=== PATIENT | female | born 1950 | race African-American/Black ===

== ENCOUNTER → 2017-02-01 | Outpatient (CLI) | payer MEDICARE ==
[~2017-02-01] MED LIST: AMLODIPINE BESY10 MG PO; ASPIRIN81 M2 PO; BACLOFEN10 MG PO; BENAZEPRIL HCL40 MG PO; CALCIUM + D 6001 TA1 PO; FUROSEMIDE40 MG PO; GABAPENTIN300 M2 PO; GLIPIZIDE10 MG/BOTT PO; HYDROCODONE/APA1 T15 PO; JANUVIA PO; LIPITOR20 MG PO; METFORMIN HCL750 MG PO; METOPROLOL SUCC25 MG PO; NOVOLIN 70100 UNITS/ SUBQ; TRAMADOL HCL50 M1 PO
[2017-02-01 12:44] LABS: HEMOGLOBIN 12.2 gm/dL (12.0-16.0); MEAN CELL VOLUME 85.8 FL (83-96); MEAN CORPUSCULAR HEMOGLOBIN 26.8 PG (28-34); MEAN CORPUSCULAR HGB CONC 31.2 g/dL (30-36); RED BLOOD COUNT 4.54 X10e (3.90-5.30); RED CELL DISTRIBUTION WIDTH 16.2 % (11.0-15.5); WHITE BLOOD COUNT 15.9 X10e3 (4.0-10.5)
[2017-02-01 12:46] LABS: URINE APPEARANCE CLEAR; URINE BILIRUBIN NEG (NEG); URINE BLOOD NEG (NEG); URINE COLOR YELLOW; URINE GLUCOSE 500 MG/DL (NEG); URINE KETONE NEG (NEG); URINE LEUKOCYTE ESTERASE NEG (NEG); URINE NITRATE NEG (NEG); URINE PROTEIN NEG (NEG); URINE SPECIFIC GRAVITY 1.021 (1.003-1.035)
[2017-02-01 12:52] LABS: URINE SOURCE CLEAN CATCH
[2017-02-01 12:54] LABS: CULTURE INDICATED? NO
[2017-02-01 13:17] LABS: CALCIUM SERUM 9.2 mg/dL (8.4-10.2); CREATININE SERUM 0.6 mg/dL (0.6-1.4); GLOM FILT RATE Estimated 109.3 mL/min (>60); POTASSIUM 4.1 mmol/L (3.5-5.1)
== END | disposition home or self-care (01) ==
LOC: CAMB 11:23
PROVIDERS: Orthopaedic Surgery
DX: Z01.812 Encounter for preprocedural laboratory examination (principal); M17.12 Unilateral primary osteoarthritis, left knee
CPT/HCPCS: 36415; 80048; 81003; 85027; 85610; 86850; 86900; 86901; 87070

== ENCOUNTER 2017-02-08 05:49 | Inpatient (IN) | payer MEDICARE ==
--- NOTE | ~2017-02-08 | DS ---
Unit #: [id number] #: [id number] Patient: KAMI CHRISTIANSON [id number] [address] [place], [place] [address] [id number] I MR#: [id number] NAME: KAMI CHRISTIANSON ROOM: 471 Age: 66 Sex: F Admission Date: 02/08/2017 : 1950 Discharge Date: Attending Physician: Marivel Reeder M.D. Primary Care Physician: Holger Goodwin M.D. DISCHARGE SUMMARY FINAL DIAGNOSIS Osteoarthritis, status post left total knee replacement. SECONDARY DIAGNOSES Chronic leukocytosis, diabetes mellitus, hypertension, dyslipidemia. HISTORY OF PRESENT ILLNESS A 66-year-old, who has been treated by me for her knee arthritis conservatively with medications, injection and continued to have persistent symptoms and she has been having episodes of knee giving out and had failed conservative measures with x-ray showing end-stage osteoarthritis, was offered knee replacement. She has since been admitted following surgery for medical and pain management. PAST MEDICAL HISTORY Significant for hypertension, diabetes, dyslipidemia, chronic leukocytosis. CURRENT MEDICATIONS Norvasc, Lasix, Lipitor, Toprol, Neurontin, baclofen, Januvia, Glucotrol. PAST SURGICAL HISTORY She has had arthroscopy of her knee, hysterectomy, rotator cuff repair, and recent left knee replacement. FAMILY HISTORY Nil significant. PERSONAL AND SOCIAL HISTORY She lives at home. Her children are closely involved in her care. She is a nonsmoker. REVIEW OF SYSTEMS HEAD AND NECK: Unremarkable. CARDIOVASCULAR: Denies any chest pain or shortness of breath. RESPIRATORY: No wheezing or coughing. GENITOURINARY: No urgency or frequency. MUSCULOSKELETAL: Positive for arthritis. BLOOD: No abnormal clotting or bleeding. ENDOCRINE: Positive for diabetes. CENTRAL NERVOUS SYSTEM: Denies any seizures or syncope. PHYSICAL EXAMINATION VITAL SIGNS: Afebrile. Heart rate 88 per minute, blood pressure 143/74. HEAD AND NECK: Normal. CARDIOVASCULAR: Heart; S1 and S2 heard. Unit #: [id number] #: [id number] Patient: KAMI CHRISTIANSON RESPIRATORY: Bilateral breath sounds heard. ABDOMEN: Soft. No organomegaly. Bowel sounds present. EXTREMITIES: Left knee has a well healing operative wound. Has some swelling. No infection. No neurovascular deficit. HOSPITAL COURSE The patient was admitted following surgery, was started on Lovenox for thromboembolic precautions. Also, she was on IV antibiotics for 24 hours. Physical therapy and OT was started with range of motion exercises and full weightbearing ambulation with a walker. Also, a medical consult was obtained from Dr. Hwang, and with continued medical management, the patient showed progressive improvement. Followup CBC showed persistent leukocytosis. She has been currently afebrile. Wound looks well. Urine cultures were negative. Her blood cultures have been recently ordered by Dr. Hwang. She is currently ambulating with a walker full weightbearing. Orthopedically, she is doing well. She is ready for rehab management pending approval by Dr. Hwang. She will continue with current medications. She will be on Lovenox for another 10 to 12 days and her sutures can be removed in 2 weeks. Her activity is full weightbearing ambulation with a walker, and she will be followed in my office in 4 weeks. If any problems, to contact my office. Dictated by... Janessa Gonzales/von TD: 02/12/2017 01:03 JOB #: [id number] DISCHARGE SUMMARY Page 1 of 1 X Marivel Reeder MD X DISCHARGE SUMMARY
--- NOTE | ~2017-02-08 | CR63 ---
[facility] A Service of [facility] & [facility] RADIOLOGY TEXT RESULTS PATIENT: KAMI CHRISTIANSON LOCATION: [facility]- : [birth year] UNIT #: [id number] AGE: [address]: Marivel Reeder MD SEX: F ORDER DR: [id number] [facility] [address] [place], [place] [address] [id number] I MR#: [id number] Acc #: [id number] NAME: KAMI CHRISTIANSON : 1950 SEX: F STUDY DATE/TIME: 02/11/2017 11:42 UNIT: [facility] ROOM: [facility] STUDY DESCRIPTION: CR Chest 2 View Attending Physician: Marivel Reeder M.D. Ordering Physician: Griselda Hwang M.D. Primary Care Physician: Holger Goodwin M.D. MEDICAL IMAGING REPORT This report is preliminary unless electronic signature is present EXAM PA and lateral chest. INDICATION 66-year-old female with shortness of breath today, low grade fever. COMPARISON 01/04/2017 FINDINGS Low-volume inspiration. There is increased atelectasis or consolidation in the left base. Heart size stable. Postop right shoulder arthroplasty. IMPRESSION Increased atelectasis or consolidation in the left base. Dictated by... Carlos Eduardo Renae M.D. THIS IS AN ELECTRONICALLY VERIFIED REPORT Carlos Eduardo Renae M.D. at 02/14/2017 9:02 AM FELIX/cecilio TD: 02/11/2017 12:49 JOB #: [id number] MEDICAL IMAGING REPORT Page 1 of 1 COPY
--- NOTE | ~2017-02-08 | CR169 ---
[facility] A Service of [facility] & [facility] RADIOLOGY TEXT RESULTS PATIENT: KAMI CHRISTIANSON LOCATION: [place] [address] : [birth year] UNIT #: [id number] AGE: [address]: Marivel Reeder MD SEX: F ORDER DR: [id number] [facility] [address] [place], [place] [address] [id number] I MR#: [id number] Acc #: [id number] NAME: KAMI CHRISTIANSON : 1950 SEX: F STUDY DATE/TIME: 02/08/2017 11:35 UNIT: [facility] ROOM: [facility] STUDY DESCRIPTION: CR Knee 2 Views Lt Attending Physician: Marivel Reeder M.D. Ordering Physician: Marivel Reeder M.D. Primary Care Physician: Holger Goodwin M.D. MEDICAL IMAGING REPORT This report is preliminary unless electronic signature is present EXAM Left knee series 01/09/2017 HISTORY Postop total PACU front. FINDINGS AP and cross-table lateral views of the left knee are presented. AP and lateral radiographs of left knee are presented. Status post left total knee replacement. Orthopedic hardware normally aligned and located. A small amount of air in the operative bed. Surgical skin shaun anteriorly. [place] bony structures show no nonsurgical abnormality. Dictated by... Jefferson Bennett M.D. THIS IS AN ELECTRONICALLY VERIFIED REPORT Jefferson Bennett M.D. at 02/09/2017 1:54 PM NIKA/james TD: 02/08/2017 12:55 JOB #: [id number] MEDICAL IMAGING REPORT Page 1 of 1 COPY
--- NOTE | ~2017-02-08 | US84 ---
[id number] [facility] [address] [place], [place] [address] [id number] I MR#: [id number] Acc #: [id number] NAME: KAMI CHRISTIANSON : 1950 SEX: F STUDY DATE/TIME: 02/13/2017 18:59 UNIT: C4 ROOM: 471 STUDY DESCRIPTION: US LE Veins Complete Patric Stdy Attending Physician: Marivel Reeder M.D. Ordering Physician: Apryl Perla M.D. Primary Care Physician: Holger Goodwin M.D. MEDICAL IMAGING REPORT This report is preliminary unless electronic signature is present EXAM Bilateral lower extremity venous ultrasound. DATE OF EXAM 02/13/2017 HISTORY Bilateral lower extremity pain for 2 days. TECHNIQUE Venous ultrasound examination of both lower extremities was performed using grayscale, spectral Doppler and color flow Doppler imaging. FINDINGS The examination is negative. There is no evidence of deep venous thrombus from the groin to the lower calf bilaterally. Visualized greater saphenous veins are also patent. IMPRESSION Negative examination. No evidence of lower extremity DVT. Dictated by... Demetrius Swenson M.D. THIS IS AN ELECTRONICALLY VERIFIED REPORT Demetrius Swenson M.D. at 02/14/2017 2:28 PM MARIA DOLORES/issac TD: 02/13/2017 23:14 JOB #: [id number] MEDICAL IMAGING REPORT Page 1 of 1 COPY
--- NOTE | ~2017-02-08 | OR ---
Unit #: [id number] #: [id number] Patient: KAMI CHRISTIANSON [id number] [address] [place], [place] [address] [id number] I MR#: [id number] NAME: KAMI CHRISTIANSON ROOM: 458 Date of Procedure: 02/08/2017 Admission Date: 02/08/2017 Surgeon: Marivel Reeder M.D. : 1950 Attending Physician: Marivel Reeder M.D. Primary Care Physician: Holger oGodwin M.D. OPERATIVE REPORT PREOPERATIVE DIAGNOSIS Osteoarthritis of left knee. POSTOPERATIVE DIAGNOSIS Osteoarthritis of left knee. PROCEDURE PERFORMED Left total knee replacement. TOURS CAPTAIN Dr. Kong Graham. IMPLANT USED 1. [employer] tibial tray, size 2.5. 2. Sigma tibial insert, curved plus, size 2.5, +8 mm. 3. Sigma femoral cruciate retaining, size 3 left femoral component. 4. Oval dome-shaped patella, 32 mm. HISTORY AND FINDINGS The patient is a 66-year-old, who has been having progressively increasing pain in the left knee. She had been treated conservatively with medication and injections, but continues to have persistent symptoms. X-rays shows end-stage osteoarthritis with subchondral cyst formation and rudg-rq-lkee. She was offered joint replacement. Procedure has been explained including risks of anesthesia and complications of surgery like infection, neurovascular injury, stiffness, postoperative complications like DVT, pneumonia had been explained. She voices understanding and wishes to proceed. DESCRIPTION OF PROCEDURE After induction of general anesthesia, the patient's left knee and leg was prepped and draped in the usual sterile manner. Time-out was called. Operative site was confirmed. Esmarch was applied and tourniquet was inflated to 300 mmHg, and then through a midline incision approximately 6 inches long was made centering over the patella. Incision deepened down and a medial arthrotomy was done and the patella was flipped laterally. The infrapatellar fat pad and the menisci was then excised. Then, the osteophytes were also excised. Then, with the knee in flexion, intramedullary drill hole was made and the intramedullary alignment fausto with the cutting block set for a 5-degree valgus and 10-mm offset was pinned in position. The distal femoral cut was made, following which with the knee in flexion, the femoral component sizer was then checked. It was Unit #: [id number] #: [id number] Patient: KAMI CHRISTIANSON decided to use a size 3 cutting block, so drill holes for cutting block was pinned in for a 3 degree external rotation, and then a size 3 cutting block was pinned in position. An anterior, posterior, and chamfer cuts were made, following which attention was turned towards the tibia and the tibia was subluxed forward and the extramedullary alignment guide for the tibia was set. The cutting block was referenced off the medial side for a -4 mm cut with a cutting block pinned in position. The drop fausto was used to check the cut, was found to be satisfactory and then proximal tibial cut was made protecting the posterior neurovascular structures, and the proximal tibia was sized for a 2.5 mm base plate. After it was sized, then the spacer block was used to check the stability in flexion and extension, was found to be stable. The trial components were placed and the 8 mm insert was introduced and the knee was taken through range of motion, was found to be stable in flexion and extension with 8 mm insert. Then, attention was turned towards the patella and the patellar button was osteotomized and drilled for a 32 mm patellar button and knee was taken through range of motion showed good tracking of the patella. Then, attention was turned to the distal femur and drill holes for the femoral pegs were then drilled, following which the trial components were removed. The tibia marked for rotational alignment and tibial base plate was then pinned and the keel was punched, following which the cut surface was irrigated and kept the bone dry while the cement was mixed. 1 g of vancomycin was added to two packs of cement. 2.5 tibial tray was initially cemented. Excess cement was cut and curetted and then the femoral component was then cemented. Left size 3 femoral cruciate retaining femoral component was cemented and excess cement was cut and curetted while the cement was curing. An 8 mm poly insert was introduced into the tibial tray and while the knee was kept in extension, the patella button was cemented. This is a 32 mm patellar button. While the cement was curing, a 3-minute Betadine soak was done, following which knee joint was thoroughly irrigated. Once cement was cured, the knee was taken through range of motion, was found to be stable in flexion and extension with good tracking of the patella. At this point, the poly insert was removed and a curved +8 mm poly insert was introduced into the tibial tray and tourniquet was let down. Hemostasis was obtained. A #1 Vicryl was used to approximate the medial arthrotomy, 0 Vicryl for deep subcu, 2-0 Vicryl for subcutaneous tissue, and skin shaun. Sterile compression dressing was applied. Blood loss was 150 mL. The patient received preoperative antibiotics. Tolerated the procedure well and was transferred to the recovery room in satisfactory condition. Dictated by... Janessa Gonzales/von TD: 02/09/2017 02:18 JOB #: [id number] Unit #: [id number] #: [id number] Patient: KAMI CHRISTIANSON OPERATIVE REPORT Page 1 of 1 X Marivel Reeder MD X PROCEDURE OPERATIVE NOTE
--- NOTE | ~2017-02-08 | CO ---
Unit #: [id number] #: [id number] Patient: KAMI DOMINGUEZ [id number] [address] [address] [id number] I MR#: [id number] NAME: KAMI DOMINGUEZ ROOM: 458 Age: 66 Sex: F Admission Date: 02/08/2017 : 1950 Attending Physician: Marivel Reeder M.D. Primary Care Physician: Holger Goodwin M.D. Requesting Physician: Marivel Reeder M.D. CONSULTATION REPORT REASON FOR CONSULTATION Medical management. HISTORY OF PRESENT ILLNESS Ms. Kami Dominguez is a 66-year-old, -German female patient of Dr. Reeder who does have osteoarthritis and she is status post left total knee replacement from this morning. Our consult was obtained secondary to general medical management of this very pleasant female. She currently denies any active issues, states that her postop pain is well under control. Denies any chest pain, shortness of breath, dyspnea, fever, chills, nausea, vomiting, diarrhea, or abdominal pain. REVIEW OF SYSTEMS Twelve-point review of systems on this patient is basically negative. PAST MEDICAL HISTORY Significant for history of hypertension, diabetes, and dyslipidemia. Also, chronic leukocytosis for which she was seeing a bulk coolers installer, Dr. Hsu. PAST SURGICAL HISTORY Significant for right rotator cuff repair, right arthroscopic knee surgery, hysterectomy, and left total knee replacement from this morning. MEDICATIONS Currently medications on this female include: 1. Norvasc. 2. Furosemide. 3. Lovenox. 4. Lipitor. 5. Senokot. 6. Novolin 70/30. 7. Toprol XL. 8. Neurontin. 9. Baclofen. 10. Calcium and vitamin D. 11. Lotensin. 12. Aspirin. 13. Percocet. 14. Ambien. 15. Milk of mag. 16. Bisacodyl. 17. Tylenol. 18. Benadryl p.r.n. Unit #: [id number] #: [id number] Patient: KAMI DOMINGUEZ 19. Zofran p.r.n. 20. Januvia. 21. Glucotrol XL. 22. Kefzol. ALLERGIES Naprosyn. SOCIAL HISTORY No history of tobacco, alcohol, or illicit drugs. FAMILY HISTORY Unremarkable. PHYSICAL EXAMINATION GENERAL APPEARANCE: Patient is a 66-year-old female in no acute distress. VITAL SIGNS: BP 143/74, heart rate 88, respirations 16, and temperature 97.5. HEENT: Head is atraumatic. Pupils are equal, round, and reactive to light and accommodation. Extraocular muscles intact. Oropharynx clear. NECK: Supple. No mass. No JVD. No bruits. CHEST: Clear to auscultation bilaterally. HEART: S1 and S2. No murmurs. ABDOMEN: Obese, soft, nontender, and nondistended. LOWER EXTREMITIES: Without any cyanosis, clubbing, or edema. NEUROLOGIC: Patient grossly intact. No focal deficits. DIAGNOSTIC STUDIES LABORATORY: White count is 21.9. No recent BMP available. ASSESSMENT AND PLAN 1. Osteoarthritis, status post left total knee replacement. Continue supportive care and symptomatic management. 2. Diabetes type 2. Continue current meds. 3. Hypertension. Resume home medications. 4. Dyslipidemia. Continue statin. 5. Chronic leukocytosis. Has been seeing bulk coolers installer, Dr. Hsu in the past. We will get the UA, urine culture, and procalcitonin level. Also, follow up on a.m. CBC. Continue hematology evaluation. 6. GI and DVT prophylaxes. Started on PPI. Continue Lovenox. I would like to thank Dr. Reeder for allowing us to participate in this patient's care. We will follow patient along with you. Dictated by... Janessa Petty/mary TD: 02/09/2017 05:05 JOB #: [id number] Unit #: [id number] #: [id number] Patient: KAMI DOMINGUEZ CONSULTATION REPORT Page 1 of 1 X Armen Tejada MD X CONSULTATION REPORT
--- NOTE | ~2017-02-08 | BMI ---
[facility] Nutrition Therapy DATE: 02/09/17 Patient: KAMI CHRISTIANSON Physician: DMITRY Address: [address] [place] [address] Room/Bed: [address] [place] [address], Zip: [place] [address] Admit Date: 02/08/17 Date of : [birth year] Height: 5 1 Weight: 229 104.2 HIGH BMI NOTE: ANTHROPOMETRICS: HT: 61" WT: 104.2 KG BMI: 43.4 INTERVENTION: 1. CONSISTENT CARBOHYDRATE DIET RECOMMENDATIONS: 1. ADD HEART HEALTHY DIET IN ORDER TO PROMOTE GRADUAL WEIGHT LOSS TOWARDS A HEALTHY BMI. Respectfully, JOE GROVES RD, LD [employer] [facility] cc: client file
--- NOTE | ~2017-02-08 | CT57 ---
[facility] A Service of [facility] RADIOLOGY TEXT RESULTS PATIENT: KAMI CHRISTIANSON LOCATION: [facility] : [birth year] UNIT #: [id number] AGE: [address]: Marivel Reeder MD SEX: F ORDER DR: [id number] [facility] [address] [place], [place] [address] [id number] I MR#: [id number] Acc #: [id number] NAME: KAMI CHRISTIANSON : 1950 SEX: F STUDY DATE/TIME: 02/14/2017 3:31 UNIT: [facility] ROOM: [facility] STUDY DESCRIPTION: CT Chest Wo Cont Attending Physician: Marivel Reeder M.D. Ordering Physician: Apryl Perla M.D. Primary Care Physician: Holger Goodwin M.D. MEDICAL IMAGING REPORT This report is preliminary unless electronic signature is present EXAM CT chest without contrast INDICATIONS Leukocytosis, low grade fever, shortness of air for the past [address] of the chest. COMPARISON None FINDINGS 1.2 cm nodule in the right upper lobe. Otherwise lungs are clear. No pleural fluid or pneumothorax. No adenopathy. No acute findings in the included upper abdomen. 3 cm benign right adrenal adenoma. No aggressive appearing bone lesion. IMPRESSION 1. No acute findings. 2. 1.2 cm nodule in the right upper lobe. Recommend comparison with any available prior imaging. If none is available, PET scan may be helpful. This nodule does have a tiny focus of bone mineralization and may represent benign granulomatous change. Dictated by... Tashi Earl M.D. THIS IS AN ELECTRONICALLY VERIFIED REPORT Tashi Earl M.D. at 02/18/2017 7:30 AM Rickey TD: 02/14/2017 06:23 [facility] A Service [facility] RADIOLOGY TEXT RESULTS PATIENT: KAMI CHRISTIANSON LOCATION: [facility]11-11 : [birth year] UNIT #: [id number] AGE: [address]: Marivel Reeder MD SEX: F ORDER DR: JOB #: [id number] MEDICAL IMAGING REPORT Page 1 of 1 COPY
[2017-02-08 06:47] LABS: HEMATOCRIT 38.6 % (35.0-45.0); HEMOGLOBIN 12.4 gm/dL (12.0-16.0); MEAN CELL VOLUME 84.5 FL (83-96); MEAN CORPUSCULAR HEMOGLOBIN 27.2 PG (28-34); MEAN CORPUSCULAR HGB CONC 32.2 g/dL (30-36); MEAN PLATELET VOLUME 8.4 FL (6.5-11.5); RED BLOOD COUNT 4.57 X10e (3.90-5.30); RED CELL DISTRIBUTION WIDTH 15.6 % (11.0-15.5); WHITE BLOOD COUNT 16.6 X10e3 (4.0-10.5)
[2017-02-08 14:21] LABS: BASOPHIL# 0.1 X10e3 (0-0.3); BASOPHIL% 0.3 % (0-2.5); DIFF IND YES; EOSINOPHIL% 0.1 % (0.0-7.0); HEMATOCRIT 37.8 % (35.0-45.0); HEMOGLOBIN 11.9 gm/dL (12.0-16.0); LYMPHOCYTE# 2.3 X10e3 (1.0-3.5); LYMPHOCYTE% 10.5 % (17.0-45.0); MEAN CELL VOLUME 85.4 FL (83-96); MEAN CORPUSCULAR HEMOGLOBIN 26.8 PG (28-34); MEAN CORPUSCULAR HGB CONC 31.4 g/dL (30-36); MEAN PLATELET VOLUME 8.5 FL (6.5-11.5); MONOCYTE# 1.2 X10e3 (0-1.0); MONOCYTE% 5.5 % (3.0-12.0); NEUTROPHIL# 18.3 X10e3 (1.5-7.1); NEUTROPHIL% 83.6 % (40-75); PLATELET COUNT 321 X10e3 (140-420); RED BLOOD COUNT 4.42 X10e (3.90-5.30); RED CELL DISTRIBUTION WIDTH 15.5 % (11.0-15.5); WHITE BLOOD COUNT 21.9 X10e3 (4.0-10.5)
[2017-02-08 14:34] LABS: PLATELET ESTIMATE NORMAL (NORMAL); RBC NORMAL YES
[2017-02-08 22:33] LABS: URINE APPEARANCE CLEAR; URINE BILIRUBIN NEG (NEG); URINE BLOOD 2+ (NEG); URINE COLOR YELLOW; URINE GLUCOSE 500 MG/DL (NEG); URINE KETONE NEG (NEG); URINE LEUKOCYTE ESTERASE 1+ (NEG); URINE NITRATE NEG (NEG); URINE PROTEIN NEG (NEG); URINE SPECIFIC GRAVITY 1.016 (1.003-1.035); URINE UROBILINOGEN 0.2 MG/DL (NEG)
[2017-02-08 22:36] LABS: CULTURE INDICATED? YES; U HYALINE CASTS AUWI 0-2 /[LPF]; URINE BACTERIA AUWI NEG (NEGATIVE); URINE SQUAMOUS EPITHELIAL CELL OCC /[HPF]; UWBCS1 AUWI 25-50 (0-5)
[2017-02-09 04:23] LABS: BASOPHIL# 0.1 X10e3 (0-0.3); BASOPHIL% 0.4 % (0-2.5); EOSINOPHIL# 0.1 X10e3 (0-0.7); EOSINOPHIL% 0.6 % (0.0-7.0); HEMATOCRIT 36.4 % (35.0-45.0); HEMOGLOBIN 11.4 gm/dL (12.0-16.0); LYMPHOCYTE# 3.4 X10e3 (1.0-3.5); LYMPHOCYTE% 17.6 % (17.0-45.0); MEAN CELL VOLUME 85.3 FL (83-96); MEAN CORPUSCULAR HEMOGLOBIN 26.8 PG (28-34); MEAN CORPUSCULAR HGB CONC 31.4 g/dL (30-36); MEAN PLATELET VOLUME 8.7 FL (6.5-11.5); MONOCYTE# 3.1 X10e3 (0-1.0); MONOCYTE% 16.1 % (3.0-12.0); NEUTROPHIL# 12.5 X10e3 (1.5-7.1); NEUTROPHIL% 65.3 % (40-75); PLATELET COUNT 314 X10e3 (140-420); RED BLOOD COUNT 4.27 X10e (3.90-5.30); RED CELL DISTRIBUTION WIDTH 15.5 % (11.0-15.5); WHITE BLOOD COUNT 19.1 X10e3 (4.0-10.5)
[2017-02-09 04:24] LABS: DIFF IND NO
[2017-02-09 04:35] LABS: CALCIUM SERUM 8.9 mg/dL (8.4-10.2); GLOM FILT RATE Estimated 67.5 mL/min (>60); POTASSIUM 3.3 mmol/L (3.5-5.1)
[2017-02-09 04:49] LABS: PROCALCITONIN 0.1 NG/ML
[2017-02-10 03:44] LABS: BASOPHIL# 0.1 X10e3 (0-0.3); BASOPHIL% 0.4 % (0-2.5); EOSINOPHIL# 0.1 X10e3 (0-0.7); EOSINOPHIL% 0.5 % (0.0-7.0); HEMATOCRIT 34.1 % (35.0-45.0); HEMOGLOBIN 10.8 gm/dL (12.0-16.0); LYMPHOCYTE# 2.5 X10e3 (1.0-3.5); LYMPHOCYTE% 12.6 % (17.0-45.0); MEAN CELL VOLUME 85.1 FL (83-96); MEAN CORPUSCULAR HGB CONC 31.8 g/dL (30-36); MEAN PLATELET VOLUME 8.6 FL (6.5-11.5); MONOCYTE# 3.6 X10e3 (0-1.0); MONOCYTE% 17.9 % (3.0-12.0); NEUTROPHIL# 13.9 X10e3 (1.5-7.1); NEUTROPHIL% 68.6 % (40-75); PLATELET COUNT 290 X10e3 (140-420); RED CELL DISTRIBUTION WIDTH 15.2 % (11.0-15.5); WHITE BLOOD COUNT 20.2 X10e3 (4.0-10.5)
[2017-02-10 03:45] LABS: DIFF IND NO
[2017-02-11 04:30] LABS: BASOPHIL# 0.1 X10e3 (0-0.3); BASOPHIL% 0.4 % (0-2.5); DIFF IND YES; EOSINOPHIL# 0.3 X10e3 (0-0.7); EOSINOPHIL% 1.4 % (0.0-7.0); HEMATOCRIT 33.1 % (35.0-45.0); HEMOGLOBIN 10.5 gm/dL (12.0-16.0); LYMPHOCYTE# 2.7 X10e3 (1.0-3.5); LYMPHOCYTE% 13.4 % (17.0-45.0); MEAN CELL VOLUME 86.1 FL (83-96); MEAN CORPUSCULAR HEMOGLOBIN 27.3 PG (28-34); MEAN CORPUSCULAR HGB CONC 31.7 g/dL (30-36); MONOCYTE# 3.2 X10e3 (0-1.0); MONOCYTE% 15.7 % (3.0-12.0); NEUTROPHIL# 14.2 X10e3 (1.5-7.1); NEUTROPHIL% 69.1 % (40-75); PLATELET COUNT 272 X10e3 (140-420); RED BLOOD COUNT 3.84 X10e (3.90-5.30); RED CELL DISTRIBUTION WIDTH 15.3 % (11.0-15.5); WHITE BLOOD COUNT 20.6 X10e3 (4.0-10.5)
[2017-02-11 04:35] LABS: BUN/CREATININE RATIO 16.66; CALCIUM SERUM 8.9 mg/dL (8.4-10.2); CREATININE SERUM 0.9 mg/dL (0.6-1.4); GLOM FILT RATE Estimated 76.7 mL/min (>60); POTASSIUM 4.3 mmol/L (3.5-5.1)
[2017-02-11 04:45] LABS: PLATELET ESTIMATE NORMAL (NORMAL)
[2017-02-11 07:46] LABS: PROTHROMBIN TIME (PATIENT) 10.6 SECONDS (9.6-11.5)
[2017-02-12 13:52] LABS: HEMATOCRIT 35.3 % (35.0-45.0); HEMOGLOBIN 11.4 gm/dL (12.0-16.0); MEAN CORPUSCULAR HEMOGLOBIN 27.8 PG (28-34); MEAN CORPUSCULAR HGB CONC 32.3 g/dL (30-36); MEAN PLATELET VOLUME 9.1 FL (6.5-11.5); RED BLOOD COUNT 4.11 X10e (3.90-5.30); RED CELL DISTRIBUTION WIDTH 15.2 % (11.0-15.5); WHITE BLOOD COUNT 21.1 X10e3 (4.0-10.5)
[2017-02-14 16:28] LABS: BASOPHIL# 0.1 X10e3 (0-0.3); BASOPHIL% 0.6 % (0-2.5); EOSINOPHIL# 0.5 X10e3 (0-0.7); EOSINOPHIL% 2.7 % (0.0-7.0); HEMATOCRIT 31.7 % (35.0-45.0); HEMOGLOBIN 10.1 gm/dL (12.0-16.0); LYMPHOCYTE# 3.2 X10e3 (1.0-3.5); LYMPHOCYTE% 19.1 % (17.0-45.0); MEAN CELL VOLUME 84.5 FL (83-96); MEAN CORPUSCULAR HEMOGLOBIN 26.9 PG (28-34); MEAN CORPUSCULAR HGB CONC 31.8 g/dL (30-36); MEAN PLATELET VOLUME 8.5 FL (6.5-11.5); MONOCYTE# 2.1 X10e3 (0-1.0); MONOCYTE% 12.2 % (3.0-12.0); NEUTROPHIL% 65.4 % (40-75); PLATELET COUNT 361 X10e3 (140-420); RED BLOOD COUNT 3.74 X10e (3.90-5.30); RED CELL DISTRIBUTION WIDTH 14.8 % (11.0-15.5); WHITE BLOOD COUNT 16.9 X10e3 (4.0-10.5)
[2017-02-14 16:31] LABS: DIFF IND YES
[2017-02-14 17:13] LABS: PLATELET ESTIMATE NORMAL (NORMAL)
== END 2017-02-15 17:40 | DRG 469 ==
LOC: CSUR 05:49 → CPACUOF 10:41 → C4B 12:33 → C4C 02-09 13:48
PROVIDERS: Orthopaedic Surgery; Physician Assistant Medical
PROC: 0SRD0J9 Replacement of Left Knee Joint with Synthetic Substitute, Cemented, Open Approach (ICD-10-PCS; principal; 2017-02-08 07:30)
DX: M17.12 Unilateral primary osteoarthritis, left knee (principal); J18.1 Lobar pneumonia, unspecified organism; Z68.41 Body mass index [BMI] 40.0-44.9, adult; E11.9 Type 2 diabetes mellitus without complications; I10 Essential (primary) hypertension; D72.829 Elevated white blood cell count, unspecified; E78.5 Hyperlipidemia, unspecified; Z79.84 Long term (current) use of oral hypoglycemic drugs; E87.6 Hypokalemia; R50.9 Fever, unspecified; M85.80 Other specified disorders of bone density and structure, unspecified site; E66.01 Morbid (severe) obesity due to excess calories
CPT/HCPCS: 71020; 71250; 73560; 80048; 81003; 82308; 82947; 85025; 85027; 85610; 87040; 87086; 93970; 94640; 94760; 94761; 97110; 97116; 97162; 97166; 97530; 97535; C1776; G8978-GP; G8979-GP; G8980-GP; G8987-GO; G8988-GO; J0131; J0171; J0690; J0735; J1650; J2250; J2270; J2405; J2795; J3010; J3370